=== PATIENT | male | born 1975 | race Caucasian/White ===

== ENCOUNTER → 2016-11-30 | Outpatient (CLI) | payer BC ==
[2016-11-30 10:31] LABS: CHLORIDE,CL 110 mmol/L (98-110); SODIUM,NA 141 mmol/L (136-146)
== END ==
LOC: MW.CHFP 09:46
PROVIDERS: ATTEND Physician Assistant
DX: Z13.1 Encounter for screening for diabetes mellitus (principal); M10.9 Gout, unspecified
CPT/HCPCS: 36415; 80048; 83036; 84550

== ENCOUNTER 2019-09-22 04:29 | Emergency (ER) | payer BC ==
[2019-09-22] MEDS ORDERED: Ondansetron 4 MG/2 ML SDV IVPUSH ONE (04:42)
[2019-09-22] MEDS ORDERED: Sodium Chloride 0.9% 2.5 ML Syringe FLUSH PRN (04:42)
[2019-09-22] MEDS ORDERED: Sodium Chloride 0.9% 10 ML Syringe FLUSH PRN (04:42)
[2019-09-22] MEDS ORDERED: Sodium Chloride 0.9% 1,000 ML IV ONE (04:42)
[2019-09-22] MEDS ORDERED: Morphine 10 MG/ML Syringe IVPUSH ONE (04:59)
[2019-09-22 05:15] LABS: BLOOD UREA NITROGEN,BUN 18 mg/dL (7.0-18.0); CARBON DIOXIDE,CO2 26.3 mmol/L (21.0-32.0); CHLORIDE,CL 106 mmol/L (98-107); GLUCOSE RANDOM 88 mg/dL (74-106); LIPASE 234 U/L (73-393); POTASSIUM,K 3.7 mmol/L (3.5-5.1); SODIUM,NA 143 mmol/L (136-148)
[2019-09-22] MEDS ORDERED: Ketorolac 30 MG/ML SDV IVPUSH ONE (05:22)
[2019-09-22] MEDS ORDERED: Iopamidol 755 MG/ML 200 ML Multipack Bottle IVPUSH ONE (05:28)
--- NOTE | 2019-09-22 05:42 | EDM.PDOC ---
ED HPI GENERAL MEDICAL PROBLEM - General Chief Complaint: Abdominal Pain Stated Complaint: ABD PAIN Time Seen by Provider: 09/22/19 05:40 Source of Information: Reports: Patient History Limitations: Reports: No Limitations - History of Present Illness INITIAL COMMENTS - FREE TEXT/NARRATIVE: Patient is 40-year-old male with a past medical history of gout. Patient presents with a chief complaint of abdominal pain. Patient states the pain started around 3:00 in the morning. Patient states the pain is located in the umbilical area. Patient says the pain radiates to the lower abdomen. Patient reports associated nausea as well as diarrhea. Patient denies any vomiting, fevers, chills, myalgias. Patient went to bed last night and was feeling with his normal state of health. She reports no prior symptoms that are similar. Believe the pain is burning and crampy. Has not taken any medication for the pain. In addition to that documented in the HPI above, the additional ROS was obtained : Constitutional: Denies fevers or chills Eyes: Denies vision changes ENMT: Denies sore throat CV: Denies chest pain Resp: Denies SOB GI: Per HPI : Denies painful urination MSK: Denies recent trauma Skin: Denies new rashes Neuro: Denies new numbness or tingling or weakness Endocrine: Denies unexpected weight loss Heme: Denies bleeding disorders I have reviewed the triage vital signs Const: Well nourished, well developed, appears stated age Eyes: PERRL, no conjunctival injection HENT: NCAT, Neck supple without meningismus CV: RRR, Warm, well-perfused extremities RESP: CTAB, Unlabored respiratory effort GI: soft, positive tenderness in the suprapubic and right lower quadrant, positive McBurney's point tenderness non-distended, no masses MSK: No gross deformities appreciated Skin: Warm, dry. No rashes Neuro: Alert, optimization analyst II-XII grossly intact. Sensation and motor function of extremities grossly intact. Psych: Appropriate mood and affect Middle Abdomen Pain Score (Numeric/FACES): 9 - Related Data Allergies Allergy/AdvReac Type Severity Reaction Status Date / Time No Known Allergies Allergy Verified 09/22/19 04:38 Home Meds: Home Meds . [No Known Home Meds] 09/22/19 [History] Past Medical History HEENT History: Reports: None Cardiovascular History: Reports: None Respiratory History: Reports: None Gastrointestinal History: Reports: None Genitourinary History: Reports: None Musculoskeletal History: Reports: Fracture, Gout Neurological History: Reports: None Psychiatric History: Reports: None Endocrine/Metabolic History: Reports: None Hematologic History: Reports: None Immunologic History: Reports: None Oncologic (Cancer) History: Reports: None Dermatologic History: Reports: None - Infectious Disease History Infectious Disease History: Reports: None Social & Family History - Family History Family Medical History: Noncontributory - Tobacco Use Smoking Status *Q: Heavy Tobacco Smoker Years of Tobacco use: 25 Packs/Tins Daily: 1 - Recreational Drug Use Recreational Drug Use: No ED ROS GENERAL - Review of Systems Review Of Systems: See Below ED EXAM, GI/ABD - Physical Exam Exam: See Below Course - Vital Signs Last Recorded V/S: Last Vital Signs Temp 36.2 C 09/22/19 04:34 Pulse 105 H 09/22/19 04:34 Resp 22 H 09/22/19 04:34 BP 110/77 09/22/19 04:34 Pulse Ox 98 09/22/19 04:34 - Orders/Labs/Meds Orders: Active Orders 24 hr Category Date Time Status Sodium Chloride 0.9% [Saline Flush] Med 09/22/19 04:42 Active 10 ml FLUSH ASDIRECTED PRN Sodium Chloride 0.9% [Saline Flush] Med 09/22/19 04:42 Active 2.5 ml FLUSH ASDIRECTED PRN Saline Lock Insert [OM.PC] Stat Oth 09/22/19 04:42 Ordered Medication Orders Sodium Chloride (Saline Flush) 10 ml FLUSH ASDIRECTED PRN PRN Reason: Keep Vein Open Last Admin: 09/22/19 05:27 Dose: 10 ml Sodium Chloride (Saline Flush) 2.5 ml FLUSH ASDIRECTED PRN PRN Reason: Keep Vein Open Last Admin: 09/22/19 05:27 Dose: 2.5 ml Labs: Laboratory Tests 09/22/19 09/22/19 Range/Units 04:48 04:48 WBC 12.12 H (4.0-11.0) K/uL RBC 5.12 (4.50-5.90) M/uL Hgb 14.9 (13.0-17.0) g/dL Hct 44.4 (38.0-50.0) % MCV 86.7 (80.0-98.0) fL MCH 29.1 (27.0-32.0) pg MCHC 33.6 (31.0-37.0) g/dL RDW Std Deviation 43.3 (28.0-62.0) fl RDW Coeff of Naman 14 (11.0-15.0) % Plt Count 213 (150-400) K/uL MPV 10.40 (7.40-12.00) fL Neut % (Auto) 75.7 (48.0-80.0) % Lymph % (Auto) 18.2 (16.0-40.0) % Rogers % (Auto) 5.7 (0.0-15.0) % Eos % (Auto) 0.3 (0.0-7.0) % Baso % (Auto) 0.1 (0.0-1.5) % Neut # (Auto) 9.2 H (1.4-5.7) K/uL Lymph # (Auto) 2.2 (0.6-2.4) K/uL Rogers # (Auto) 0.7 (0.0-0.8) K/uL Eos # (Auto) 0.0 (0.0-0.7) K/uL Baso # (Auto) 0.0 (0.0-0.1) K/uL Nucleated RBC % 0.0 /100WBC Nucleated RBCs # 0 K/uL Sodium 143 (136-148) mmol/L Potassium 3.7 (3.5-5.1) mmol/L Chloride 106 (98-107) mmol/L Carbon Dioxide 26.3 (21.0-32.0) mmol/L BUN 18 (7.0-18.0) mg/dL Creatinine 0.8 (0.8-1.3) mg/dL Est Cr Clr Drug Dosing 138.43 mL/min Estimated GFR (MDRD) > 60.0 ml/min Glucose 88 (74-106) mg/dL Calcium 8.9 (8.5-10.1) mg/dL Total Bilirubin 0.4 (0.2-1.0) mg/dL AST 22 (15-37) IU/L ALT 44 (14-63) IU/L Alkaline Phosphatase 89 (46-116) U/L Total Protein 7.9 (6.4-8.2) g/dL Albumin 4.2 (3.4-5.0) g/dL Globulin 3.7 (2.6-4.0) g/dL Albumin/Globulin Ratio 1.1 (0.9-1.6) Lipase 234 (73-393) U/L Meds: Medications Generic Name Dose Route Start Last Admin Trade Name Freq PRN Reason Stop Dose Admin Sodium Chloride 10 ml 09/22/19 04:42 09/22/19 05:27 Saline Flush FLUSH 10 ml ASDIRECTED PRN Administration Keep Vein Open Sodium Chloride 2.5 ml 09/22/19 04:42 09/22/19 05:27 Saline Flush FLUSH 2.5 ml ASDIRECTED PRN Administration Keep Vein Open Discontinued Medications Generic Name Dose Route Start Last Admin Trade Name Prateekq PRN Reason Stop Dose Admin Sodium Chloride 1,000 mls @ 999 mls/hr 09/22/19 04:42 09/22/19 04:55 Normal Saline IV 09/22/19 05:42 999 mls/hr .Bolus ONE Administration Iopamidol 100 ml 09/22/19 05:28 09/22/19 05:45 Isovue Multipack-370 (76%) IVPUSH 09/22/19 05:29 100 ml ONETIME ONE Administration Ketorolac Tromethamine 15 mg 09/22/19 05:22 09/22/19 05:27 Toradol IVPUSH 09/22/19 05:23 15 mg ONETIME ONE Administration Morphine Sulfate 6 mg 09/22/19 04:59 09/22/19 05:28 Morphine IVPUSH 09/22/19 05:00 Not Given ONETIME ONE Ondansetron HCl 4 mg 09/22/19 04:42 09/22/19 04:55 Zofran IVPUSH 09/22/19 04:43 4 mg ONETIME ONE Administration Departure - Departure Time of Disposition: 06:28 Disposition: Home, Self-Care 01 Condition: Good Clinical Impression: Diarrhea - Discharge Information Instructions: Abdominal Pain, Adult, [id number] Referrals: PCP,None [Primary Care Provider] - Forms: ED Department Discharge Additional Instructions: The following information is given to patients seen in the emergency department who are being discharged to home. This information is to outline your options for follow-up care. We provide all patients seen in our emergency department with a follow-up referral. The need for follow-up, as well as the timing and circumstances, are variable depending upon the specifics of your emergency department visit. If you don't have a primary care physician on staff, we will provide you with a referral. We always advise you to contact your personal physician following an emergency department visit to inform them of the circumstance of the visit and for follow-up with them and/or the need for any referrals to a consulting specialist. The emergency department will also refer you to a specialist when appropriate. This referral assures that you have the opportunity for follow-up care with a specialist. All of these measure are taken in an effort to provide you with optimal care, which includes your follow-up. Under all circumstances we always encourage you to contact your private physician who remains a resource for coordinating your care. When calling for follow-up care, please make the office aware that this follow-up is from your recent emergency room visit. If for any reason you are refused follow-up, please contact the [facility] Emergency Department at and asked to speak to the emergency department charge nurse. Return to the emergency department immediately for worsening pain, inability to keep any food or liquid down, high fevers, or any other concerns. Please take medication as directed. Eat a soft diet and avoid spicy foods. Sepsis Event Note - Evaluation Sepsis Screening Result: No Definite Risk - Focused Exam Vital Signs: Vital Signs Temp Pulse Resp BP Pulse Ox 09/22/19 04:34 36.2 C 105 H 22 H 110/77 98 Date Exam was Performed: 09/22/19 Time Exam was Performed: 06:28 - My Orders Last 24 Hours: My Active Orders 09/22/19 04:42 Sodium Chloride 0.9% [Saline Flush] 10 ml FLUSH ASDIRECTED PRN Sodium Chloride 0.9% [Saline Flush] 2.5 ml FLUSH ASDIRECTED PRN Saline Lock Insert [OM.PC] Stat - Assessment/Plan Last 24 Hours: My Active Orders 09/22/19 04:42 Sodium Chloride 0.9% [Saline Flush] 10 ml FLUSH ASDIRECTED PRN Sodium Chloride 0.9% [Saline Flush] 2.5 ml FLUSH ASDIRECTED PRN Saline Lock Insert [OM.PC] Stat Assessment:: Patient is 43-year-old male presenting with chief complaint of lower abdominal pain and diarrhea. Patient labs were unremarkable. Patient CT scan demonstrates findings consistent with gastroenteritis. Patient pain and symptoms much improved after visit in the emergency department. Patient given strict return precautions. Differentials also considered colitis, appendicitis , stone. However these are much less likely given the CT scan findings. Patient be discharged home with Zofran for nausea.
--- NOTE | 2019-09-22 06:17 | CT ---
INDICATION: Right lower quadrant pain TECHNIQUE: CT abdomen and pelvis without contrast. COMPARISON: 06/05/2019 FINDINGS: Lower chest: Unremarkable. Liver: Unremarkable. Spleen: Unremarkable. Pancreas: Unremarkable. Gallbladder and bile ducts: Unremarkable. Kidneys: Unremarkable. No kidney or ureteral stones and no hydronephrosis. Adrenal glands: Unremarkable. GI tract: Fluid-filled small bowel loops. Appendix is normal. Vascular structures: Unremarkable. Lymph nodes: Unremarkable. Miscellaneous: Small fat containing umbilical hernia. No free air or significant free fluid. Pelvic Organs: Unremarkable. Bones: Bilateral L4 pars defects with grade 1 anterolisthesis L4 over L5. IMPRESSION: Normal-appearing appendix. Fluid filled small bowel loops. Correlate with gastroenteritis clinically. Dictated by Landon Vee MD @ 09/22/2019 6:15:58 AM Please note that all CT scans at this facility use dose modulation, iterative reconstruction, and/or weight-based dosing when appropriate to reduce radiation dose to as low as reasonably achievable. Dictated by: Landon Vee MD @ 09/22/2019 06:16:02 (Electronically Signed)
[2019-09-22 06:51] VITALS: BP 109/63; PULSE 96
== END 2019-09-22 06:45 | disposition home or self-care (01) ==
LOC: MW.ED 04:29
DX: R19.7 Diarrhea, unspecified (principal); M10.9 Gout, unspecified; F17.210 Nicotine dependence, cigarettes, uncomplicated
CPT/HCPCS: 36415; 74177; 80053; 83690; 85025; 96361; 96374; 96375; 99284; J1885; J2405; J7030; Q9967

== ENCOUNTER 2021-08-15 08:43 | Emergency (ER) | payer BC ==
[2021-08-15 09:03] VITALS: BP 117/81; PULSE 103
[2021-08-15] MEDS ORDERED: Ketorolac 60 MG/2 ML SDV IM ONE (09:07)
--- NOTE | 2021-08-15 09:41 | EDM.PDOC ---
ED HPI GENERAL MEDICAL PROBLEM - General Chief Complaint: Respiratory Problem Stated Complaint: COVID SYMPTOMS Time Seen by Provider: 08/15/21 08:49 - History of Present Illness INITIAL COMMENTS - FREE TEXT/NARRATIVE: 45-year-old male presenting with nasal congestion sore throat nonproductive cough chills and subjective fevers that started 4 days ago. Patient concerned he may have Covid he has profound weakness as well. Some mild shortness of breath but no chest pain no abdominal pain some nausea but no vomiting. Patient denies any other medical problems takes no current medications. Symptoms are not relieved by Tylenol or ibuprofen at home. Significant myalgias and arthralgias associated with the symptoms. No radiation head/sinus Pain Score (Numeric/FACES): 8 - Related Data Allergies Allergy/AdvReac Type Severity Reaction Status Date / Time No Known Allergies Allergy Verified 08/15/21 08:57 Home Meds: Home Meds Meloxicam 15 mg PO DAILY 08/15/21 [History] Past Medical History HEENT History: Reports: None Cardiovascular History: Reports: None Respiratory History: Reports: None Gastrointestinal History: Reports: None Genitourinary History: Reports: None Musculoskeletal History: Reports: Fracture, Gout Neurological History: Reports: None Psychiatric History: Reports: None Endocrine/Metabolic History: Reports: None Hematologic History: Reports: None Immunologic History: Reports: None Oncologic (Cancer) History: Reports: None Dermatologic History: Reports: None - Infectious Disease History Infectious Disease History: Reports: None - Past Surgical History Head Surgeries/Procedures: Reports: None Musculoskeletal Surgical History: Reports: None Social & Family History - Family History Family Medical History: No Pertinent Family History - Tobacco Use Tobacco Use Status *Q: Current Every Day Tobacco User Years of Tobacco use: 30 Packs/Tins Daily: 1 - Caffeine Use Caffeine Use: Reports: Coffee, Energy Drinks, Soda - Recreational Drug Use Recreational Drug Use: No ED ROS GENERAL - Review of Systems Review Of Systems: See Below Free Text/Narrative/Comment: General: Per HPI Skin: No rash. Eyes: No vision problems. ENT: Per HPI Neck: No neck stiffness. Respiratory: Per HPI Cardiac: No chest pain. Gastrointestinal: Per HPI Urinary: No dysuria. Musculoskeletal: Per HPI Neurologic: No headache. ED EXAM, GENERAL - Physical Exam Exam: See Below Free Text/Narrative:: General Appearance: No acute distress, appears comfortable Skin: No rash HEENT: Normocephalic/atraumatic, sclera anicteric, mucous membranes moist Neck: Normal range of motion Chest and Lungs: Bilateral breath sounds, clear to auscultation Cardiovascular: Regular rate and rhythm Abdomen: Soft, non-tender Back: Normal Musculoskeletal: No edema or tenderness Neurologic: Awake, alert, no obvious deficits, moving all extremities Psychiatric: Appropriate, cooperative Course - Vital Signs Last Recorded V/S: Last Vital Signs Temp 97.2 F 08/15/21 08:58 Pulse 103 H 08/15/21 08:58 Resp 18 08/15/21 08:58 BP 117/81 08/15/21 08:58 Pulse Ox 94 L 08/15/21 08:58 - Orders/Labs/Meds Orders: Active Orders 24 hr Category Date Time Status Chest 1V Frontal [CR] Stat Exams 08/15/21 09:07 Taken Labs: Laboratory Tests 08/15/21 Range/Units 08:42 SARS-CoV-2 RNA (HERVE) POSITIVE H (NEGATIVE) Meds: Medications Discontinued Medications Generic Name Dose Route Start Last Admin Trade Name Clarisse PRN Reason Stop Dose Admin Ketorolac Tromethamine 30 mg 08/15/21 09:07 08/15/21 09:12 Ketorolac 60 Mg/2 Ml Sdv IM 08/15/21 09:08 30 mg ONETIME ONE Administration Departure - Departure Time of Disposition: 10:01 Disposition: Home, Self-Care 01 Condition: Fair Clinical Impression: COVID-19 - Discharge Information *PRESCRIPTION DRUG MONITORING PROGRAM REVIEWED*: Not Applicable *COPY OF PRESCRIPTION DRUG MONITORING REPORT IN PATIENT ROBBY: Not Applicable Instructions: 10 Things You Can Do to Manage Your COVID-19 Symptoms at Home - [facility] (04/17/2021), COVID-19: What to Do If You Are Sick- [facility] (12/17/2020) Referrals: Wei David MD [Primary Care Provider] - Forms: ED Department Discharge Additional Instructions: You should receive a phone call on Tuesday regarding an appointment for antibody infusion. You develop more trouble breathing or any other symptoms that concern you please call Dr. David's office or return to the ER. The following information is given to patients seen in the emergency department who are being discharged to home. This information is to outline your options for follow-up care. We provide all patients seen in our emergency department with a follow-up referral. The need for follow-up, as well as the timing and circumstances, are variable depending upon the specifics of your emergency department visit. If you don't have a primary care physician on staff, we will provide you with a referral. We always advise you to contact your personal physician following an emergency department visit to inform them of the circumstance of the visit and for follow-up with them and/or the need for any referrals to a consulting specialist. The emergency department will also refer you to a specialist when appropriate. This referral assures that you have the opportunity for follow-up care with a specialist. All of these measure are taken in an effort to provide you with optimal care, which includes your follow-up. Under all circumstances we always encourage you to contact your private physician who remains a resource for coordinating your care. When calling for follow-up care, please make the office aware that this follow-up is from your recent emergency room visit. If for any reason you are refused follow-up, please contact the [facility] Emergency Department at and asked to speak to the emergency department charge nurse. Sepsis Event Note (ED) - Evaluation Sepsis Screening Result: No Definite Risk - Focused Exam Vital Signs: Vital Signs Temp Pulse Resp BP Pulse Ox 08/15/21 08:58 97.2 F 103 H 18 117/81 94 L - My Orders Last 24 Hours: My Active Orders 08/15/21 09:07 Chest 1V Frontal [CR] Stat - Assessment/Plan Last 24 Hours: My Active Orders 08/15/21 09:07 Chest 1V Frontal [CR] Stat Assessment:: Obese 45-year-old male presenting with signs and symptoms that are consistent with COVID-19 infection. X-ray ordered and swab pending. Patient would like consideration for monoclonal antibody if he is positive. Patient would qualify given his obesity. His calculated BMI is 39.8. Patient's work of breathing is normal his oxygenation is good no indication for admission at this point. Patient has no meningismus on exam. No findings suggest meningitis or encephalitis 1000: Patient is Covid positive as expected vital signs remain normal work of breathing remains normal. Symptomatic guidance provided relevant paperwork for antibody infusion has been filled out by myself discussed that he should be called regarding an appointment on Tuesday. Return precautions discussed and understood.
--- NOTE | 2021-08-15 10:12 | CR ---
INDICATION: Fever. Cough. Suspected COVID-19 viral infection. TECHNIQUE: AP portable chest. FINDINGS: Shallow inspiration. Clear lungs. Normal heart size and pulmonary vascularity. Minor spurring of the right AC joint. IMPRESSION: Negative portable chest. Dictated by Timi Raza MD @ 08/15/2021 10:10:40 AM (Electronically Signed)
== END 2021-08-15 10:21 | disposition home or self-care (01) ==
LOC: MW.ED 08:43
DX: U07.1 COVID-19 (principal); Z72.0 Tobacco use
CPT/HCPCS: 71045; 87635; 96372; 99283; J1885; U0002

== ENCOUNTER 2025-07-11 08:44 | Emergency (ER) | payer BC ==
[2025-07-11 08:54] VITALS: BP 135/73; PULSE 69
== END 2025-07-11 09:41 | disposition home or self-care (01) ==
LOC: MW.ED 08:44
DX: M25.512 Pain in left shoulder (principal); Z79.899 Other long term (current) drug therapy
CPT/HCPCS: 73030-26-LT; 73030-LT; 99283